=== PATIENT | male | born 1950 | race Caucasian/White ===

== ENCOUNTER 2019-12-06 09:44 | Observation (INO) | payer MEDICARE, OTHER ==
[2019-12-06] MEDS ORDERED: Nitroglycerin 2% Ointment 1 INCH/1 GM Packet ONE (10:01)
[2019-12-06] MEDS ORDERED: Aspirin Chewable 81 MG TAB ONE (10:01)
[2019-12-06 10:15] LABS: #Eosinphils 0.1 thou/uL (0.0-0.7); #Lymphocytes 1.8 thou/uL (1.20-3.40); #Monocytes 0.4 thou/uL (0.11-0.59); #Neutrophils 2.8 thou/uL (1.40-6.50); %Basophils 0.2 % (0.0-1.0); %Lymphocytes 34.9 % (21.0-51.0); %Neutrophils 55.9 % (42.0-75.0); Hemoglobin 15.1 g/dL (14.0-18.0); Mean Corpuscular Hemoglobin 29.5 pg (27.0-31.0); Mean Corpuscular Volume 89.5 fL (78.0-98.0); Mean Platelet Volume 8.6 fL (7.4-10.4); Platelet Count 150 thou/uL (130-400); RBC Distribution Width 12.2 % (11.5-14.5); Red Blood Cell (RBC) Count 5.13 mill/uL (4.70-6.10); White Blood Cell (WBC) Count 5.1 thou/uL (4.8-10.8)
[2019-12-06 10:40] LABS: ALT (SGPT) 45 U/L (8-55); AST (SGOT) 33 U/L (5-34); Albumin 4.8 g/dL (3.4-4.8); Alkaline Phosphatase 57 U/L (40-110); Anion Gap 15 mmol/L (10-20); BUN (Urea Nitrogen) 18 mg/dL (8.4-25.7); Bilirubin, Total 1.3 mg/dL (0.2-1.2); Calc. Creatinine Clearance 0 mL/min (70-130); Calcium 9.8 mg/dL (7.8-10.44); Carbon Dioxide 24 mmol/L (23-31); Chloride 103 mmol/L (98-107); Estimated GFR-MDRD 63; Globulin 2.6 g/dL (2.4-3.5); Glucose 122 mg/dL (80-115); Lipase 95 U/L (8-78); Potassium 4.2 mmol/L (3.5-5.1); Protein, Total 7.4 g/dL (5.8-8.1); Sodium 138 mmol/L (136-145)
--- NOTE | 2019-12-06 11:58 | ULT ---
Exam: Right upper quadrant ultrasound: HISTORY: Chest pain. COMPARISON: None FINDINGS: Liver: Increased echogenicity suggesting diffuse fatty infiltration. Small focal irregular hypoechoic area seen within the liver adjacent to the gallbladder measuring 1.6 cm likely due to area of focal fatty sparing. Gallbladder: Increased echogenic material within the neck of the gallbladder without posterior shadow ing most suggestive of sludge within the gallbladder lumen. No definite gallbladder calculus is seen. There is no gallbladder wall thickening or pericholecystic fluid identified. A negative sonogra phic Wooten sign was elicited during the exam. Common bile duct: The common duct is normal in caliber measuring 0.3 cm in diameter. Pancreas: Completely obscured by shadowing from bowel gas and unable to be evaluated on this exam. Right kidney: Right kidney demonstrates a normal sonographic appearance. The right kidney measures 1 1.5 cm in length. IVC: The visualized IVC demonstrates a normal sonographic appearance. IMPRESSION: 1. Evidence of gallbladder sludge without gallbladder calculus. Common duct is normal in caliber. 2. Diffuse fatty infiltration liver with probable focal area of fatty sparing adjacent to the gallbla dder. 3. Nonvisualization of pancreas due to shadowing from bowel gas.
--- NOTE | 2019-12-06 12:03 | RAD ---
PORTABLE CHEST: HISTORY: Chest pain. FINDINGS: Heart size is within normal limits. There are atherosclerotic changes of the aorta. The lungs are c lear of infiltrates. No bony findings. IMPRESSION: No active intrathoracic disease. POS: OFF
[2019-12-06] MEDS ORDERED: Ondansetron ODT 4 MG TAB PO PRN (12:42)
[2019-12-06] MEDS ORDERED: Acetaminophen 325 MG TAB PO PRN (12:42)
[2019-12-06] MEDS ORDERED: Nitroglycerin 0.4 MG TAB (25 Tab Bottle) SL PRN (12:52)
[2019-12-06] MEDS ORDERED: HumaLOG 300 UNITS/3 ML VIAL SC PRN (12:59)
[2019-12-06] MEDS ORDERED: Dextrose 5% in Water 1,000 ML IV PRN (12:59)
[2019-12-06] MEDS ORDERED: Dextrose 50% Abboject 50 ML SYRINGE SLOW IVP PRN (12:59)
[2019-12-06] MEDS ORDERED: Loratadine 10 MG TAB PO PRN (14:25)
[2019-12-06 14:31] LABS: Troponin I Less than 0.010 ng/mL (< 0.028)
[2019-12-06 15:17] VITALS: BMI 31.6
--- NOTE | 2019-12-06 17:29 | CON ---
DATE OF CONSULTATION: REASON FOR CONSULTATION: PVCs. HISTORY OF PRESENT ILLNESS: Mr. Gerber is a 69-year-old gentleman, who has been seen and evaluated by Cardiology at outlying facility. He intermittently sees them for hypertension. He has been seen in [facility]. He was set up for colonoscopy and was found to have a low heart rate. He also complained of chest pressure. Pain was described as mild substernal with no radiation. The patient was found to have PVCs and recommended emergency room visitation. During my visit, he is currently chest pain free. PVCs present. He has been on beta nash therapy. PAST MEDICAL HISTORY: Diabetes mellitus, hypertension, hyperlipidemia. PAST SURGICAL HISTORY: Knee surgery. SOCIAL HISTORY: No positive chewing tobacco. No smoking. ALLERGIES: TETRACYCLINES. HOME MEDICATIONS: Include; 1. Amlodipine. 2. Atorvastatin. 3. Carvedilol. 4. Hydrochlorothiazide. 5. Losartan. 6. Omeprazole. 7. Aspirin. 8. Claritin. 9. Metformin. REVIEW OF SYSTEMS: A 10-point review of systems is reviewed and is as above, otherwise negative. PHYSICAL EXAMINATION: GENERAL: Patient is a pleasant male, who is in no acute distress. The patient appears their stated age. VITAL SIGNS: Blood pressure 110/58, pulse 66, temperature 98. NEUROLOGIC: The patient is alert and oriented x3 with no focal neurologic deficits. HEENT: Sclerae without icterus. Mouth has moist mucous membranes with normal pallor. NECK: No JVD. Carotid upstroke brisk. No bruits bilaterally. LUNGS: Clear to auscultation with unlabored respirations. BACK: No scoliosis or kyphosis. CARDIAC: Regular rate and rhythm with normal S1 and S2. No S3 or S4 noted. No significant rubs, murmurs, thrills, or gallops noted throughout the precordium. PMI is not displaced. There is no parasternal heave. ABDOMEN: Soft, nontender, nondistended. No peritoneal signs present. No hepatosplenomegaly. No abnormal striae. EXTREMITIES: 2+ femoral and 2+ dorsalis pedis pulses. No cyanosis, clubbing, or edema. SKIN: No gross abnormalities. PERTINENT LABS: Glucose 122. HbA1c of 12.7. Total bilirubin 1.3. Triglyceride level is 526. Lipase 95. IMPRESSION: 1. PVCs. 2. Hypertension. 3. Chest pain. RECOMMENDATIONS: Mr. Gerber's symptoms are not felt to be typical for angina. He is currently chest pain free. His EKG is currently pending. At this point, we would check a magnesium level. He is currently on beta-nash therapy. He is on carvedilol 25 mg one p.o. b.i.d. Unfortunately, his HbA1c is markedly elevated at 12.7. If his 3rd troponin level is negative, we will recommend continued outpatient workup. May consider flecainide if felt to be symptomatic from PVCs. It is unknown how symptomatic Mr. Gerber currently and will need an assessment of the number of PVCs noted over several days. Job ID: [id number]
[2019-12-06] MEDS: Carvedilol 25 MG TAB PO SCH (18:34)
--- NOTE | 2019-12-06 18:50 | HP ---
CHIEF COMPLAINT: Chest pain. HISTORY OF PRESENT ILLNESS: The patient is a 69-year-old male with past medical history of hypertension, hyperlipidemia, diabetes mellitus type 2, and osteoarthritis, who presented to the hospital with complaints of chest pain. The patient's symptoms started last night and was localized to the substernal area. The pain did not radiate anywhere in the chest. His pain was associated with palpitations. The patient denies nausea, shortness of breath, or sweating. He also denies dizziness or syncope. The patient was scheduled for a colonoscopy for screening purposes on Saturday, but the procedure was not done because he was found to be bradycardic with heart rate in the 40s and 50s. In the ER, the patient was found to be in bigeminy with PVCs alternating with normal sinus beats. He is currently asymptomatic. His initial troponin was unremarkable. REVIEW OF SYSTEMS: Negative except as noted in HPI. PAST MEDICAL HISTORY: As noted above. PAST SURGICAL HISTORY: Bilateral knee surgeries. SOCIAL HISTORY: The patient is a current tobacco user. Denies alcohol or illicit drug use. FAMILY HISTORY: Noncontributory for his current presentation. PHYSICAL EXAMINATION: GENERAL: The patient is alert and oriented x3. HEENT: Head is normocephalic and atraumatic. Extraocular muscles are intact. NECK: Supple. CHEST: Auscultation is clear bilaterally. CARDIOVASCULAR: Revealed normal S1 and S2 with no murmurs, rubs, or gallops and regular rate and rhythm. ABDOMEN: Soft, nontender, nondistended with bowel sounds in all quadrants. EXTREMITIES: Reveal no peripheral edema. NEUROLOGIC: Did not show any obvious focal deficits. ASSESSMENT: 1. Chest pain, rule out acute coronary syndrome. 2. Premature ventricular contractions with bigeminy. 3. Hypertension. 4. Hyperlipidemia. PLAN: The patient will be placed in telemetry observation. He has an elevated HEART score of 6. We will monitor troponin q.3 hours. His initial EKG did not show any ST elevations. We will continue his home medications, which include aspirin, atorvastatin, losartan, and carvedilol. Nitroglycerin sublingual as needed for chest pain. His condition was discussed with Dr. Sky who agreed to see the patient in consultation. Job ID: [id number]
[2019-12-06] MEDS ORDERED: Atorvastatin Calcium 40 MG TAB PO SCH (21:00)
[2019-12-06] MEDS ORDERED: Amlodipine 5 MG TAB PO SCH (22:30)
[2019-12-06] MEDS ORDERED: Losartan 25 MG TAB PO SCH (22:30)
[2019-12-06] MEDS ORDERED: Hydrochlorothiazide 25 MG TAB PO SCH (22:30)
[2019-12-06] MEDS ORDERED: Aspirin 81 mg Enteric Coated Tablet PO SCH (22:30)
[2019-12-07 05:19] LABS: #Eosinphils 0.1 thou/uL (0.0-0.7); #Lymphocytes 1.9 thou/uL (1.20-3.40); #Monocytes 0.4 thou/uL (0.11-0.59); #Neutrophils 2.2 thou/uL (1.40-6.50); %Basophils 0.2 % (0.0-1.0); %Eosinophils 2.9 % (0.0-10.0); %Lymphocytes 40.9 % (21.0-51.0); %Monocytes 8.6 % (0.0-10.0); %Neutrophils 47.5 % (42.0-75.0); Hemoglobin 13.1 g/dL (14.0-18.0); Mean Corpuscular HGB CONC 33.3 g/dL (32.0-36.0); Mean Corpuscular Volume 90.2 fL (78.0-98.0); Mean Platelet Volume 8.7 fL (7.4-10.4); Platelet Count 130 thou/uL (130-400); RBC Distribution Width 12.1 % (11.5-14.5); Red Blood Cell (RBC) Count 4.37 mill/uL (4.70-6.10); White Blood Cell (WBC) Count 4.7 thou/uL (4.8-10.8)
[2019-12-07 05:59] LABS: Anion Gap 15 mmol/L (10-20); BUN (Urea Nitrogen) 19 mg/dL (8.4-25.7); Calc. Creatinine Clearance 91 mL/min (70-130); Calcium 8.9 mg/dL (7.8-10.44); Carbon Dioxide 22 mmol/L (23-31); Chloride 106 mmol/L (98-107); Estimated GFR-MDRD 78; Glucose 104 mg/dL (80-115); Sodium 139 mmol/L (136-145)
[2019-12-07] MEDS: Carvedilol 25 MG TAB PO SCH (08:03)
[2019-12-07] MEDS ORDERED: Enoxaparin Sodium 40 MG/0.4 ML SYRINGE SC SCH (09:00)
[2019-12-07 11:17] VITALS: BP 131/62; TEMP 97.7
--- NOTE | 2019-12-07 12:37 | PRG ---
DATE OF SERVICE: 12/07/2019 SUBJECTIVE: Mr. Gerber is doing better. No current complaints. No chest pain or pressure noted. This morning, he was continued to have PVCs. He was switched from Coreg to diltiazem. Upon my review at noon, he had significant improvement in PVCs. No chest pain, pressure, shortness of breath, or associated symptoms. OBJECTIVE: CURRENT VITAL SIGNS: Blood pressure 131/62, pulse 84, temperature 97.7. LUNGS: Clear to auscultation. HEART: Regular rate and rhythm. ABDOMEN: Soft, nontender, nondistended. EXTREMITIES: No edema. IMPRESSION: 1. Premature ventricular contractions. 2. Diabetes mellitus. RECOMMENDATIONS: 1. I have switched his Coreg to Cardizem 180 one p.o. q.a.m. 2. Discussed the case with the EP. They are happy to follow up with Mr. Gerber as an outpatient. 3. We would recommend 5-day Holter monitor to assess for a number of PVCs. 4. Echo has been ordered, but not done. The patient would like to have echo Doppler performed as an outpatient. 5. We will follow up Mr. Gerber within a week. Otherwise, I have no further recommendations. Job ID: [id number]
[2019-12-07] MEDS ORDERED: Carvedilol 25 MG TAB PO SCH (17:00)
[2019-12-07] MEDS ORDERED: Losartan 25 MG TAB PO SCH (21:00)
[2019-12-07] MEDS ORDERED: Hydrochlorothiazide 25 MG TAB PO SCH (21:00)
[2019-12-07] MEDS ORDERED: Amlodipine 5 MG TAB PO SCH (21:00)
[2019-12-07] MEDS ORDERED: Aspirin 81 mg Enteric Coated Tablet PO SCH (21:00)
--- NOTE | 2019-12-08 02:24 | DIS ---
DATE OF ADMISSION: 12/06/2019 DATE OF DISCHARGE: 12/07/2019 DISCHARGE DIAGNOSES: 1. Frequent premature ventricular contractions with bigeminy. 2. Atypical chest pain. 3. Hypertension. 4. Hyperlipidemia. DISCHARGE MEDICATIONS: 1. Amlodipine 5 mg orally nightly. 2. Aspirin 81 mg orally nightly. 3. Atorvastatin 40 mg orally nightly. 4. Diltiazem 180 mg extended release orally daily. 5. Hydrochlorothiazide 25 mg orally nightly. 6. Loratadine 10 mg orally nightly. 7. Losartan 100 mg orally nightly. 8. Metformin 500 mg two tablets orally nightly. 9. Omeprazole 20 mg orally nightly. 10. Semaglutide 0.5 mg subcu q.7 days. HISTORY OF PRESENT ILLNESS AND HOSPITAL COURSE: The patient is a 69-year-old male, with past medical history of hypertension and hyperlipidemia, who presented to the hospital with complaints of chest discomfort. The patient stated that his pain started on the night prior to presentation and was localized to the substernal area. His EKG revealed no ST elevation, but showed frequent PVCs in a bigeminy pattern. Serial troponins were unremarkable. The patient was evaluated by Cardiology and his chest pain was not felt to be typical for angina. He has been chest pain-free since admission. His carvedilol has been switched to diltiazem and outpatient followup with PCP was recommended for management of his frequent PVCs. The patient's hemoglobin A1c in October was 12.7, but during his hospital stay his sugar levels remain stable, so we will continue his current outpatient management with followup A1c in a couple of months. Job ID: [id number]
[2019-12-08 15:29] LABS: SARS-CoV-2 MS2 Positive; SARS-CoV-2 N Gene Negative; SARS-CoV-2 S Gene Negative; SARS-CoV-2 by NAA Not Detected (NotDetected); SARS-CoV-2 orf1ab Negative
== END 2019-12-07 12:58 | disposition home or self-care (01) ==
LOC: ERS 09:44 → 2SW 12:29
PROVIDERS: ADMIT Internal Medicine; ATTEND Internal Medicine
DX: I49.3 Ventricular premature depolarization (principal); R07.89 Other chest pain; I10 Essential (primary) hypertension; E11.9 Type 2 diabetes mellitus without complications; E78.5 Hyperlipidemia, unspecified; M17.0 Bilateral primary osteoarthritis of knee; F17.220 Nicotine dependence, chewing tobacco, uncomplicated; Z79.82 Long term (current) use of aspirin; Z79.84 Long term (current) use of oral hypoglycemic drugs; Z79.899 Other long term (current) drug therapy; Z88.1 Allergy status to other antibiotic agents; Z20.828 Contact with and (suspected) exposure to other viral communicable diseases
CPT/HCPCS: 71045; 76705; 80048; 80053; 82962 ×2; 83690; 83735; 83880; 84484 ×2; 85025 ×2; 93005; 93306; 96360; 97139; 99285; U0003; 36415; 36416; 87635; 96372; G0378; J1650

== ENCOUNTER 2020-10-20 20:43 | Emergency (ER) | payer MEDICARE ==
[2020-10-20 21:26] LABS: Mean Corpuscular Hemoglobin 30.4 pg (27.0-31.0); Mean Corpuscular Volume 89.5 fL (78.0-98.0); Platelet Count 162 thou/uL (130-400); RBC Distribution Width 12.5 % (11.5-14.5); Red Blood Cell (RBC) Count 5.59 mill/uL (4.70-6.10); White Blood Cell (WBC) Count 8.3 thou/uL (4.8-10.8)
[2020-10-20 21:40] LABS: ALT (SGPT) 16 U/L (8-55); AST (SGOT) 17 U/L (5-34); Albumin 4.7 g/dL (3.4-4.8); Alkaline Phosphatase 65 U/L (40-110); Anion Gap 20 mmol/L (10-20); BUN (Urea Nitrogen) 22 mg/dL (8.4-25.7); Bilirubin, Total 2.4 mg/dL (0.2-1.2); CK (CPK) 67 U/L (30-200); Calc. Creatinine Clearance 0 mL/min (70-130); Calcium 9.8 mg/dL (7.8-10.44); Carbon Dioxide 19 mmol/L (23-31); Chloride 99 mmol/L (98-107); Globulin 3.4 g/dL (2.4-3.5); Glucose 137 mg/dL (80-115); Magnesium 2.1 mg/dL (1.6-2.6); Potassium 3.6 mmol/L (3.5-5.1); Protein, Total 8.1 g/dL (5.8-8.1); Sodium 134 mmol/L (136-145)
[2020-10-20 21:58] LABS: Band 31 % (5-11); Lymphocytes 12 % (21-51); MDiff Complete? YES; Monocytes 13 % (0-10); Neutrophil 27 % (42-75); Platelet Morphology Comment Appears Adequate; RBC Morphology Normal; Reactive Lymphocytes 17 % (0-10)
[2020-10-20 22:03] LABS: SARS-CoV-2 NAA Rapid Test Not Detected (NotDetected)
[2020-10-20] MEDS ORDERED: Dicyclomine 20 MG TAB ONE (22:12)
== END 2020-10-20 23:48 | disposition home or self-care (01) ==
LOC: ERS 20:43
DX: K52.9 Noninfective gastroenteritis and colitis, unspecified (principal); Z20.822 Contact with and (suspected) exposure to COVID-19; I10 Essential (primary) hypertension; E78.5 Hyperlipidemia, unspecified; E11.9 Type 2 diabetes mellitus without complications; F17.220 Nicotine dependence, chewing tobacco, uncomplicated; Z79.82 Long term (current) use of aspirin; Z79.84 Long term (current) use of oral hypoglycemic drugs; Z79.899 Other long term (current) drug therapy
CPT/HCPCS: 0240U; 80053; 82550; 83605; 83735; 84484; 85025; 87045; 87046; 87077; 87147; 87186; 87427 ×2; 87449; 93005; 96365; J0744

== ENCOUNTER 2025-01-03 17:38 | Emergency (ER) | payer MEDICARE ==
[2025-01-03] MEDS ORDERED: CEFAZOLIN 2 GM VIAL ONE (18:43)
[2025-01-03] MEDS ORDERED: Ondansetron PF 4 MG/2 ML Vial ONE (18:43)
[2025-01-03 18:51] LABS: #Basophils 0.05 10x3/uL (0.0-0.2); #Eosinophils 0.07 10x3/uL (0.0-0.7); #Monocytes 0.54 10x3/uL (0.11-0.59); #Neutrophils 4.58 10x3/uL (1.40-6.50); %Basophils 0.8 % (0.0-1.0); %Eosinophils 1.1 % (0.0-10.0); %Lymphocytes 19.7 % (21.0-51.0); %Monocytes 8.2 % (0.0-10.0); %Neutrophils 69.4 % (42.0-75.0); Hematocrit 41.8 % (42.0-52.0); Hemoglobin 13.7 g/dL (14.0-18.0); Mean Corpuscular Hemoglobin 28.4 pg (27.0-31.0); Mean Corpuscular Volume 86.5 fL (78.0-98.0); Platelet Count 161 10x3/uL (130-400); Red Blood Cell (RBC) Count 4.83 mill/uL (4.70-6.10); White Blood Cell (WBC) Count 6.59 10x3/uL (4.8-10.8)
[2025-01-03 19:08] LABS: ALT (SGPT) 17 U/L (Less than 45); AST (SGOT) 25 U/L (11-34); Albumin 4.4 g/dL (3.1-4.5); Alkaline Phosphatase 62 U/L (40-110); Anion Gap 15 mmol/L (10-20); BUN (Urea Nitrogen) 16 mg/dL (8.4-25.7); Bilirubin, Total 1.6 mg/dL (0.3-1.2); Calc. Creatinine Clearance 0 mL/min (70-130); Calcium 9.4 mg/dL (7.8-10.44); Carbon Dioxide 23 mmol/L (23-31); Chloride 106 mmol/L (98-107); Globulin 2.7 g/dL (2.4-3.5); Glucose 99 mg/dL (83-110); INR-International Normal Ratio 1.0; PTT 26.1 sec (22.9-36.1); Potassium 3.8 mmol/L (3.5-5.1); Prothrombin Time 13.5 sec (12.0-14.7); Sodium 140 mmol/L (136-145)
[2025-01-03] MEDS ORDERED: Lidocaine 1% w/Epinephrine 1:100K 20 ML VIAL ONE (19:44)
[2025-01-03] MEDS ORDERED: Lidocaine 1% PF 5 ML VIAL ONE (19:58)
== END 2025-01-03 21:36 | disposition home or self-care (01) ==
LOC: ERS 17:38
DX: S62.621B Displaced fracture of middle phalanx of left index finger, initial encounter for open fracture (principal); I10 Essential (primary) hypertension; E78.5 Hyperlipidemia, unspecified; E11.9 Type 2 diabetes mellitus without complications; Z79.899 Other long term (current) drug therapy; Z79.85 Long-term (current) use of injectable non-insulin antidiabetic drugs; W26.8XXA Contact with other sharp object(s), not elsewhere classified, initial encounter
CPT/HCPCS: 73130; 80053; 85025; 85610; 85730; J2270; J2405; 12004; 29125; 96374; 96375

== ENCOUNTER 2025-01-14 06:47 | Day surgery (SDC) | payer MEDICARE ==
[2025-01-13 13:18] VITALS: BMI 29.8
[2025-01-14] MEDS ORDERED: Famotidine/PF 20 mg/2ml Vial ONE (08:44)
[2025-01-14] MEDS ORDERED: Bupivacaine 0.25% HCL 30 ML VIAL ONE (09:12)
[2025-01-14] MEDS ORDERED: CEFAZOLIN 2 GM VIAL ONE (09:12)
[2025-01-14] MEDS ORDERED: Lidocaine 1% PF 5 ML VIAL ONE ×2 (09:16→09:27)
[2025-01-14] MEDS ORDERED: fentaNYL PF 100 MCG/2 ML SYRINGE ONE (09:16)
[2025-01-14] MEDS ORDERED: SUCCINYLCHOLINE/SOD CL,ISO/PF 200 MG/10 ML SYRINGE FS ONE (09:17)
[2025-01-14] MEDS ORDERED: PROPOFOL 200 MG/20 ML VIAL ONE (09:28)
== END 2025-01-14 11:52 | disposition home or self-care (01) ==
LOC: SDC 06:47
PROVIDERS: ATTEND Orthopaedic Surgery
PROC: 0X6 Anatomical Regions, Upper Extremities, Detachment (ICD-10-PCS; principal; 2025-01-14)
DX: S68.627A Partial traumatic transphalangeal amputation of left little finger, initial encounter (principal); E11.9 Type 2 diabetes mellitus without complications; E78.5 Hyperlipidemia, unspecified; I10 Essential (primary) hypertension; K21.9 Gastro-esophageal reflux disease without esophagitis; X58.XXXA Exposure to other specified factors, initial encounter; Z88.1 Allergy status to other antibiotic agents; Z79.82 Long term (current) use of aspirin; Z79.899 Other long term (current) drug therapy; Z79.84 Long term (current) use of oral hypoglycemic drugs
CPT/HCPCS: 26951; J0665; J1308; J7050; 93005; 93010; J2704